=== PATIENT | male | born 1975 | race Caucasian/White ===

== ENCOUNTER 2024-05-06 21:04 | Observation (INO) | payer MEDICARE ==
--- NOTE | 2024-05-06 21:17 | ERPHSYRPT ---
- History of Present Illness Time Seen by Provider: 05/06/24 21:10 Source: patient, EMS Physician History: 49yo m presents via EMS for sob. Pt reports he has been having difficulty catching his breath today, reports he was intubated following a pneumonia and respiratory failure, was extubated 2 wks ago. Pt reports some dry cough today, denies any fevers, chills or body aches. Pt denies any cp, n/v/d. Pt is not currently anticoagulated. Timing/Duration: today Activities at Onset: none Severity of Dyspnea-Max: mild Severity of Dyspnea-Current: mild Possible Cause: occasional episodes Modifying Factors: Improves With: nothing Associated Symptoms: constant, cough, No chest pain/discomfort, No edema, No fever, No wheezing, No ankle swelling, No chills, No hemoptysis, No painful breathing, No productive cough Allergies/Adverse Reactions: No Known Drug Allergies Allergy (Unverified 05/06/24 21:28) Home Medications: Aspirin EC 81 mg [Ecotrin 81 mg] 81 mg PO DAILY 05/06/24 [History] Carvedilol 12.5 mg [Coreg 12.5 mg] 12.5 mg PO BID 05/06/24 [History] Cholecalciferol (Vitamin D3) [Vitamin D3] 25 mcg PO DAILY 05/06/24 [History] Dapagliflozin Propanediol [Farxiga] 10 mg PO DAILY 05/06/24 [History] Dextromethorphan HBr 45 mg PO DAILY 05/06/24 [History] Fenofibrate Nanocrystallized [Tricor] 48 mg PO DAILY 05/06/24 [History] Gabapentin 600 mg PO DAILY 05/06/24 [History] Hydrocodone/Acetaminophen [Hydrocodone-Acetamin 5-325 mg] 1 tab PO Q6HPRN PRN MDD 4 05/06/24 [History] Insulin Aspart [NovoLOG Insulin] 35 unit SQ TIDAC 05/06/24 [History] Insulin Glargine,Hum.rec.anlog [Basaglar Kwikpen U-100] 60 unit SQ DAILY 05/06/24 [History] Omeprazole 20 mg PO DAILY 05/06/24 [History] Ropinirole HCl 0.25 mg PO DAILY 05/06/24 [History] Sitagliptin Phosphate 50 MG [Januvia 50 MG] 100 mg PO DAILY 05/06/24 [History] - Review of Systems Constitutional: No Symptoms Respiratory: Cough, Dyspnea, No Stridor, No Wheezing Cardiac: No Chest Pain, No Edema, No Palpitations Abdominal/Gastrointestinal: No Symptoms - Nursing Vital Signs Nursing Vital Signs: Initial Vital Signs Pulse Rate 94 H 05/06/24 21:03 Respiratory Rate 15 05/06/24 21:03 Blood Pressure 156/103 05/06/24 21:03 O2 Sat by Pulse Oximetry 95 05/06/24 21:03 Pain Scale Pain Intensity 1 - Physical Exam General Appearance: no apparent distress, alert Respiratory Exam: normal breath sounds, lungs clear, diminished breath sounds (diffusely), No chest tenderness, No respiratory distress Cardiovascular/Chest Exam: normal heart sounds, regular rate/rhythm, normal peripheral pulses, No edema Neurologic Exam: alert, oriented x 3, cooperative SpO2 Interpretation: normal SpO2: 95 O2 Delivery: Nasal Cannula (2L) - Course EKG Interpreted by Me: RATE (98), Sinus Rhythm, Non-specific ST Changes, Other (qtcb [id number], not suggestive of acute ischemia) Ordered Tests: Active Orders 24 hr Category Date Time Status EKG-ER Only STAT Care 05/06/24 21:14 Active CHEST WITH CONTRAST [CT] Stat Exams 05/06/24 22:08 Completed CBC W DIFF Stat Lab 05/06/24 21:15 Completed CMP Stat Lab 05/06/24 21:15 Completed D-DIMER QUANTITATIVE Stat Lab 05/06/24 21:15 Completed Lactic Acid Stat Lab 05/06/24 21:25 Completed PROCALCITONIN Stat Lab 05/06/24 21:15 Completed TROPONIN Q4H Lab 05/07/24 00:45 Ordered TROPONIN Q4H Lab 05/07/24 04:45 Ordered TROPONIN Q4H Lab 05/07/24 08:45 Ordered TROPONIN Q4H Lab 05/07/24 12:45 Ordered TROPONIN Q4H Lab 05/07/24 16:45 Ordered TROPONIN Q4H Lab 05/07/24 20:45 Ordered UA W/RFX UR CULTURE Stat Lab 05/06/24 22:18 Completed Respiratory Therapy Assessment DAILY RT 05/06/24 21:36 Active Medication Summary Discontinued Medications Generic Name Dose Route Start Last Admin Trade Name Freq PRN Reason Stop Dose Admin Albuterol/Ipratropium 3 ml 05/06/24 21:14 05/06/24 21:36 Ipratropium/Albuterol Sulfate 3 Ml Ampul.Neb IH 05/06/24 21:15 3 ml STAT ONE Administration Albuterol/Ipratropium Confirm 05/06/24 21:20 Ipratropium/Albuterol Sulfate 3 Ml Ampul.Neb Administered 05/06/24 21:21 Dose 3 ml IH .STK-MED ONE Lab/Rad Data: Laboratory Result Diagrams 05/06/24 21:15 05/06/24 21:15 Laboratory Results 05/06/24 05/06/24 05/06/24 Range/Units 22:18 21:25 21:15 WBC (4.23-9.07) x10^3/uL RBC (4.63-6.08) x10^6/uL Hgb (13.7-17.5) g/dL Hct (40.1-51.0) % MCV (79.0-92.2) fL MCH (25.7-32.2) pg MCHC (32.3-36.5) g/dL RDW (11.6-14.4) % Plt Count (163-337) x10^3/uL MPV (9.4-12.4) fL Gran % (34.0-67.9) % Immature Gran % (Auto) (0.001-0.429) % Nucleat RBC Rel Count (0.00-0.2) % Eos # (Auto) (0.04-0.54) x10^3/uL Immature Gran # (Auto) (0.001-0.031) x10^3u/L Absolute Lymphs (auto) (1.32-3.57) x10^3/uL Absolute Monos (auto) (0.30-0.82) x10^3/uL Absolute Nucleated RBC (0.00-0.012) x10^3u/L Lymphocytes % (21.8-53.1) % Monocytes % (5.3-12.2) % Eosinophils % (0.8-7.0) % Basophils % (0.2-1.2) % Absolute Granulocytes (1.78-5.38) x10^3/uL Basophils # (0.01-0.08) x10^3/uL D-Dimer 0.59 H (0.0-0.50) mg/L Sodium (135-145) mmol/L Potassium (3.5-5.1) mmol/L Chloride (98-107) mmol/L Carbon Dioxide (22-30) mmol/L Anion Gap (5-15) MEQ/L BUN (9-20) mg/dL Creatinine (0.66-1.25) mg/dL Estimated GFR ML/MIN Glucose (74-106) mg/dL Lactic Acid 1.2 (0.4-2.0) Calcium (8.4-10.2) mg/dL Total Bilirubin (0.2-1.3) mg/dL AST (17-59) U/L ALT (0-50) U/L Alkaline Phosphatase (38-126) U/L Serum Total Protein (6.3-8.2) g/dL Albumin (3.5-5.0) g/dL Procalcitonin (0.030-0.080) ng/mL Urine Color Yellow (Yellow) Urine Appearance Clear (Clear) Urine pH 5.5 (4.6-8.0) Ur Specific [place] >=1.030 A (1.005-1.030) Urine Protein Negative (Negative) Urine Glucose (UA) >=1000 A (Negative) mg/dL Urine Ketones Negative (Negative) Urine Blood Negative (Negative) Urine Nitrite Negative (Negative) Urine Bilirubin Negative (Negative) Urine Urobilinogen 1.0 A (0.2) mg/dL Ur Leukocyte Esterase Negative (Negative) U Hyaline Cast (Auto) NONE SEEN (0-2) /LPF Urine Microscopic RBC 0-2 (0-5) /HPF Urine Microscopic WBC 0-2 (0-5) /HPF Ur Epithelial Cells None Seen (None Seen) /HPF Urine Bacteria None Seen (None Seen) /HPF Urine Culture Reflexed NO (NO) Influenza Type A Ag (NEGATIVE) Influenza Type B Ag (NEGATIVE) RSV (PCR) (NEGATIVE) SARS-CoV-2 (PCR) (NEGATIVE) 05/06/24 05/06/24 05/06/24 Range/Units 21:15 21:15 21:15 WBC (4.23-9.07) x10^3/uL RBC (4.63-6.08) x10^6/uL Hgb (13.7-17.5) g/dL Hct (40.1-51.0) % MCV (79.0-92.2) fL MCH (25.7-32.2) pg MCHC (32.3-36.5) g/dL RDW (11.6-14.4) % Plt Count (163-337) x10^3/uL MPV (9.4-12.4) fL Gran % (34.0-67.9) % Immature Gran % (Auto) (0.001-0.429) % Nucleat RBC Rel Count (0.00-0.2) % Eos # (Auto) (0.04-0.54) x10^3/uL Immature Gran # (Auto) (0.001-0.031) x10^3u/L Absolute Lymphs (auto) (1.32-3.57) x10^3/uL Absolute Monos (auto) (0.30-0.82) x10^3/uL Absolute Nucleated RBC (0.00-0.012) x10^3u/L Lymphocytes % (21.8-53.1) % Monocytes % (5.3-12.2) % Eosinophils % (0.8-7.0) % Basophils % (0.2-1.2) % Absolute Granulocytes (1.78-5.38) x10^3/uL Basophils # (0.01-0.08) x10^3/uL D-Dimer (0.0-0.50) mg/L Sodium 141 (135-145) mmol/L Potassium 4.1 (3.5-5.1) mmol/L Chloride 105 (98-107) mmol/L Carbon Dioxide 29 (22-30) mmol/L Anion Gap 11.3 (5-15) MEQ/L BUN 17 (9-20) mg/dL Creatinine 0.90 (0.66-1.25) mg/dL Estimated GFR 104.1 ML/MIN Glucose 116 H (74-106) mg/dL Lactic Acid (0.4-2.0) Calcium 9.5 (8.4-10.2) mg/dL Total Bilirubin 0.30 (0.2-1.3) mg/dL AST 22 (17-59) U/L ALT 22 (0-50) U/L Alkaline Phosphatase 61 (38-126) U/L Serum Total Protein 7.6 (6.3-8.2) g/dL Albumin 4.0 (3.5-5.0) g/dL Procalcitonin 0.062 (0.030-0.080) ng/mL Urine Color (Yellow) Urine Appearance (Clear) Urine pH (4.6-8.0) Ur Specific [place] (1.005-1.030) Urine Protein (Negative) Urine Glucose (UA) (Negative) mg/dL Urine Ketones (Negative) Urine Blood (Negative) Urine Nitrite (Negative) Urine Bilirubin (Negative) Urine Urobilinogen (0.2) mg/dL Ur Leukocyte Esterase (Negative) U Hyaline Cast (Auto) (0-2) /LPF Urine Microscopic RBC (0-5) /HPF Urine Microscopic WBC (0-5) /HPF Ur Epithelial Cells (None Seen) /HPF Urine Bacteria (None Seen) /HPF Urine Culture Reflexed (NO) Influenza Type A Ag NEGATIVE (NEGATIVE) Influenza Type B Ag NEGATIVE (NEGATIVE) RSV (PCR) NEGATIVE (NEGATIVE) SARS-CoV-2 (PCR) NEGATIVE (NEGATIVE) 05/06/24 Range/Units 21:15 WBC 12.3 H (4.23-9.07) x10^3/uL RBC 5.50 (4.63-6.08) x10^6/uL Hgb 14.3 (13.7-17.5) g/dL Hct 47.2 (40.1-51.0) % MCV 85.8 (79.0-92.2) fL MCH 26.0 (25.7-32.2) pg MCHC 30.3 L (32.3-36.5) g/dL RDW 14.6 H (11.6-14.4) % Plt Count 293 (163-337) x10^3/uL MPV 9.8 (9.4-12.4) fL Gran % 74.4 H (34.0-67.9) % Immature Gran % (Auto) 0.5 H (0.001-0.429) % Nucleat RBC Rel Count 0.0 (0.00-0.2) % Eos # (Auto) 0.32 (0.04-0.54) x10^3/uL Immature Gran # (Auto) 0.06 H (0.001-0.031) x10^3u/L Absolute Lymphs (auto) 1.86 (1.32-3.57) x10^3/uL Absolute Monos (auto) 0.86 H (0.30-0.82) x10^3/uL Absolute Nucleated RBC 0.00 (0.00-0.012) x10^3u/L Lymphocytes % 15.1 L (21.8-53.1) % Monocytes % 7.0 (5.3-12.2) % Eosinophils % 2.6 (0.8-7.0) % Basophils % 0.4 (0.2-1.2) % Absolute Granulocytes 9.19 H (1.78-5.38) x10^3/uL Basophils # 0.05 (0.01-0.08) x10^3/uL D-Dimer (0.0-0.50) mg/L Sodium (135-145) mmol/L Potassium (3.5-5.1) mmol/L Chloride (98-107) mmol/L Carbon Dioxide (22-30) mmol/L Anion Gap (5-15) MEQ/L BUN (9-20) mg/dL Creatinine (0.66-1.25) mg/dL Estimated GFR ML/MIN Glucose (74-106) mg/dL Lactic Acid (0.4-2.0) Calcium (8.4-10.2) mg/dL Total Bilirubin (0.2-1.3) mg/dL AST (17-59) U/L ALT (0-50) U/L Alkaline Phosphatase (38-126) U/L Serum Total Protein (6.3-8.2) g/dL Albumin (3.5-5.0) g/dL Procalcitonin (0.030-0.080) ng/mL Urine Color (Yellow) Urine Appearance (Clear) Urine pH (4.6-8.0) Ur Specific [place] (1.005-1.030) Urine Protein (Negative) Urine Glucose (UA) (Negative) mg/dL Urine Ketones (Negative) Urine Blood (Negative) Urine Nitrite (Negative) Urine Bilirubin (Negative) Urine Urobilinogen (0.2) mg/dL Ur Leukocyte Esterase (Negative) U Hyaline Cast (Auto) (0-2) /LPF Urine Microscopic RBC (0-5) /HPF Urine Microscopic WBC (0-5) /HPF Ur Epithelial Cells (None Seen) /HPF Urine Bacteria (None Seen) /HPF Urine Culture Reflexed (NO) Influenza Type A Ag (NEGATIVE) Influenza Type B Ag (NEGATIVE) RSV (PCR) (NEGATIVE) SARS-CoV-2 (PCR) (NEGATIVE) - Progress Progress: improved Air Movement: fair Progress Note: 05/07/24 00:36 d dimer elevated at 0.59 - CTA chest ordered - negative for large PE, radiologist read reports they cannot r/o small subsegmental PE wbc 12k, procal wnl CTA chest not suggestive of acute pna, viral swabs negative vitals stable throughout stay, pt has saturated around 95% on 2L nc in ED plan to admit for obs - i discussed pt case w/ hospitalist Dr Palm who is willing to accept Blood Culture(s) Obtained: No Antibiotics given: No Counseled pt/family regarding: lab results, diagnosis, need for follow-up, rad results Medical Desision Making - Diagnostic Testing Diagnostic test were ordered, analyzed, and reviewed by me: Yes Radiological Interpretation: Reviewed by me, Teleradiologist Report - Risk of complications The pt has a high risk of morbidity or mortality based on: Decision regarding hospitilization or escalation of hosp level of care - Departure Departure Disposition: Observation Clinical Impression: Acute hypoxic respiratory failure, Elevated d-dimer Condition: Stable Critical Care Time: No Referrals: DOCTOR,NO FAMILY [Primary Care Provider] - Follow up/PCP as directed
[2024-05-06] MEDS ORDERED: DUONEB 0.5-3 MG/3 ml Neb IH ONE (21:20)
[2024-05-06 21:33] LABS: Absolute Neutrophil Ct (ANC) 9.19 x10^3/uL (1.78-5.38); BASOPHIL % 0.4 % (0.2-1.2); Basophil (Absolute #) 0.05 x10^3/uL (0.01-0.08); Eosinophil % 2.6 % (0.8-7.0); Eosinophil (Absolute #) 0.32 x10^3/uL (0.04-0.54); Hematocrit 47.2 % (40.1-51.0); Hemoglobin 14.3 g/dL (13.7-17.5); IMMATURE GRAN # 0.06 x10^3u/L (0.001-0.031); IMMATURE GRAN % 0.5 % (0.001-0.429); Lymphocyte (Absolute #) 1.86 x10^3/uL (1.32-3.57); Lymphocytes % 15.1 % (21.8-53.1); Mean Cell Volume 85.8 fL (79.0-92.2); Mean Corpuscular Hgb Concent. 30.3 g/dL (32.3-36.5); Mean Platelet Volume 9.8 fL (9.4-12.4); Monocyte (Absolute #) 0.86 x10^3/uL (0.30-0.82); Neutrophil % 74.4 % (34.0-67.9); Platelet Count 293 x10^3/uL (163-337); Red Cell Distribution Width 14.6 % (11.6-14.4); White Blood Count 12.3 x10^3/uL (4.23-9.07)
[2024-05-06] MEDS: DUONEB 0.5-3 MG/3 ml Neb IH ONE (21:36)
[2024-05-06 21:48] LABS: ANION GAP 11.3 MEQ/L (5-15); BILIRUBIN,TOTAL 0.3 mg/dL (0.2-1.3); Calcium 9.5 mg/dL (8.4-10.2); Creatinine 1 0.9 mg/dL (0.66-1.25); EST GLOMERULAR FILTRATION RATE 104.1 ML/MIN; Potassium 4.1 mmol/L (3.5-5.1); Total Protein 7.6 g/dL (6.3-8.2)
[2024-05-06 22:10] LABS: INFLUENZA A NEGATIVE (NEGATIVE); INFLUENZA B NEGATIVE (NEGATIVE); RESPIRATORY SYNCTIAL VIRUS NEGATIVE (NEGATIVE); SARS-CoV-2 Xpert Express NEGATIVE (NEGATIVE)
[2024-05-06 22:26] LABS: Appearance Clear (Clear); Bacteria None Seen /HPF (None Seen); Bilirubin Negative (Negative); Blood Negative (Negative); Epithelial Cells None Seen /HPF (None Seen); Glucose, Urine >=1000 mg/dL (Negative); Hyaline Casts NONE SEEN /LPF (0-2); Ketones Negative (Negative); Leukocyte Esterase Negative (Negative); Nitrite Negative (Negative); Ph 5.5 (4.6-8.0); Protein,Urine Dip Negative (Negative); RBC 0-2 /HPF (0-5); Specific Gravity >=1.030 (1.005-1.030); WBC 0-2 /HPF (0-5)
--- NOTE | 2024-05-07 00:05 | XRAY ---
CLINICAL HISTORY: elevated dimer, sob COMPARISON: None. TECHNIQUE: Contiguous 3.[address] angiographic images of the chest were acquired with the administration of intravenous contrast. Coronal and sagittal reconstructions were obtained. One of these 3D techniques was utilized: Maximum Intensity Pixel (MIP), 3D Reconstructed Images, Volume Rendered Images, Surface Shaded Rendering. One of the following dose reduction techniques were utilized for this exam: Automated exposure control, adjustment of the mA and/or kV according to patient size, and use of iterative reconstruction. FINDINGS: Pulmonary Arteries: No evidence of pulmonary embolism in the pulmonary trunk, the right and left pulmonary arteries. The possibility of pulmonary embolism in the segmental and subsegmental pulmonary arteries cannot be entirely excluded due to suboptimal contrast opacification, No stenosis or filling defects. Aorta: The thoracic aorta is normal in caliber. No evidence of aneurysm, dissection, or significant atherosclerotic changes. Aortic arch and descending thoracic aorta are unremarkable. Superior Vena Cava (SVC) and Inferior Vena Cava (IVC): Normal opacification and caliber. No evidence of thrombus or obstruction. Coronary Arteries: Coronary arteries are well-opacified. No significant stenosis or atherosclerotic changes. Mediastinum: No mediastinal mass or lymphadenopathy. Normal appearance of the thymus. Few calcified hilar lymph nodes. Heart: Normal size and morphology of the heart. No pericardial effusion. Lungs: Lungs are clear with no evidence of consolidation, nodules, or masses. Calcified granuloma is seen in the right lower lobe. No pleural effusion or thickening. Bones: No fractures or lytic/sclerotic lesions of the visualized bony structures. Normal alignment and bone density. Soft Tissues: Normal appearance of the visualized soft tissues. No abnormal masses or fluid collections. IMPRESSION: 1. No evidence of pulmonary embolism in the pulmonary trunk, the right and left pulmonary arteries. 2. The possibility of pulmonary embolism in the segmental and subsegmental pulmonary arteries cannot be entirely excluded due to suboptimal contrast opacification. Should the clinical concerns or indications persist, a follow-up examination with optimal phase acquisition may be considered. 3. No acute pulmonary findings. Electronically Signed by: Kay Banks MD. (05/07/2024 00:01:44 EST)
--- NOTE | 2024-05-07 01:37 | PCM.HP ---
History of Present Illness - Chief Complaint Chief Complaint: acute hypoxic respiratory failure Date: 05/06/24 History of Present Illness: 49-year-old male with senior care resident, with past medical history significant for COPD, hypertension, hyperlipidemia, type 2 diabetes mellitus, GERD, restless leg,who just got discharged from [facility] ago, he had complicated pneumonia had a long course remained intubated, he sent to senior care 2 weeks ago where he stayed fine till this evening when noted to be in respiratory distress. Patient although denied having any chest pain shortness of breath no new cough congestion reported but his saturation was down to 80%. Upon arrival to ER he was placed on 2 L and says sats went up to 90%. In the ER the initial blood pressure was 156/103 his pulse was 94 respiration 15 he was afebrile with temp of 98.3.Lab workup concern white cell count 12.3 hemoglobin 14.3 platelets 193 sodium 141 potassium 4.1 chloride 104 bicarb 29 BUN 17 creatinine 0.90. D-dimer reported high liver enzymes completely unremark able procalcitonin 0.062 urine was negative. He was tested negative for influenza COVID and respiratory syncytial virus. Checks x-ray remained unremarkable patient admitted for observation for acute resp failure - Review of Systems All Other Systems: Reviewed and Negative Medications & Allergies Home Medications: Home Medication List Aspirin EC 81 mg [Ecotrin 81 mg] 81 mg PO DAILY 05/06/24 [History Confirmed 05/07/24] Carvedilol 12.5 mg [Coreg 12.5 mg] 12.5 mg PO BID 05/06/24 [History Confirmed 05/07/24] Cholecalciferol (Vitamin D3) [Vitamin D3] 25 mcg PO DAILY 05/06/24 [History Confirmed 05/07/24] Dapagliflozin Propanediol [Farxiga] 10 mg PO DAILY 05/06/24 [History Confirmed 05/07/24] Dextromethorphan HBr 45 mg PO DAILY 05/06/24 [History Confirmed 05/07/24] Fenofibrate Nanocrystallized [Tricor] 48 mg PO DAILY 05/06/24 [History Confirmed 05/07/24] Gabapentin 600 mg PO DAILY 05/06/24 [History Confirmed 05/07/24] Hydrocodone/Acetaminophen [Hydrocodone-Acetamin 5-325 mg] 1 tab PO Q6HPRN PRN MDD 4 05/06/24 [History Confirmed 05/07/24] Insulin Aspart [NovoLOG Insulin] 35 unit SQ TIDAC 05/06/24 [History Confirmed 05/07/24] Insulin Glargine,Hum.rec.anlog [Basaglar Kwikpen U-100] 60 unit SQ DAILY 05/06/24 [History Confirmed 05/07/24] Omeprazole 20 mg PO DAILY 05/06/24 [History Confirmed 05/07/24] Ropinirole HCl 0.25 mg PO DAILY 05/06/24 [History Confirmed 05/07/24] Sitagliptin Phosphate 50 MG [Januvia 50 MG] 100 mg PO DAILY 05/06/24 [History Confirmed 05/07/24] Allergies/Adverse Reactions: Allergies Allergy/AdvReac Type Severity Reaction Status Date / Time No Known Drug Allergies Allergy Unverified 05/06/24 21:28 - Past Medical History Past Medical History: Yes Cardiac History: High Cholesterol, Hypertension Respiratory History: COPD, Sleep Apnea Endocrine Medical History: Diabetes Type II GI Medical History: GERD Pyscho-Social History: Anxiety Comment: hx of chronic resp failure, pulmonary edema, rls - Past Surgical History Past Surgical History: No Significant Family History: no pertinent family hx - Social History Smoking Status: Former smoker Exposure to second hand smoke: No Alcohol: None Drug Use: none - Social Determinants of Health Will the patient participate in the screening: Declined to provide Comment: from envive - Physical Exam Vital Signs: Vital Signs - 24 hr Temp Pulse Resp BP BP Pulse Ox 05/07/24 01:01 79 18 137/74 95 05/07/24 00:39 95 05/07/24 00:30 20 143/115 94 L 05/07/24 00:00 81 20 116/76 99 05/06/24 23:30 18 138/69 87 L 05/06/24 23:04 74 20 123/70 96 05/06/24 22:30 131/76 05/06/24 22:00 95 H 132/107 73 L 05/06/24 21:36 99 H 24 95 05/06/24 21:30 99 H 17 132/103 96 05/06/24 21:10 98.3 F 101 H 20 156/103 97 05/06/24 21:03 94 H 15 156/103 95 Additional Findings: 05/07/24 01:35 HEENT Young aged, average built in some resp distress on 2 liters oxygen. NECK Supple,no thyromegaly, CVS S1+S2 + 0, no murmers RESP Bilateral equal air entry without Crepts/Wheezes heard GIT Soft non tender,non distended Skin, No rah, no Bruises LEGS No Edema PSYCH Normal,mood, judgement and insight NEURO AOX3, no focal deficit Results - Labs Lab/Micro Results: Lab Results-Last 24 Hours 05/06/24 05/06/24 05/06/24 Range/Units 21:15 21:15 21:15 WBC 12.3 H (4.23-9.07) x10^3/uL RBC 5.50 (4.63-6.08) x10^6/uL Hgb 14.3 (13.7-17.5) g/dL Hct 47.2 (40.1-51.0) % MCV 85.8 (79.0-92.2) fL MCH 26.0 (25.7-32.2) pg MCHC 30.3 L (32.3-36.5) g/dL RDW 14.6 H (11.6-14.4) % Plt Count 293 (163-337) x10^3/uL MPV 9.8 (9.4-12.4) fL Gran % 74.4 H (34.0-67.9) % Immature Gran % (Auto) 0.5 H (0.001-0.429) % Nucleat RBC Rel Count 0.0 (0.00-0.2) % Eos # (Auto) 0.32 (0.04-0.54) x10^3/uL Immature Gran # (Auto) 0.06 H (0.001-0.031) x10^3u/L Absolute Lymphs (auto) 1.86 (1.32-3.57) x10^3/uL Absolute Monos (auto) 0.86 H (0.30-0.82) x10^3/uL Absolute Nucleated RBC 0.00 (0.00-0.012) x10^3u/L Lymphocytes % 15.1 L (21.8-53.1) % Monocytes % 7.0 (5.3-12.2) % Eosinophils % 2.6 (0.8-7.0) % Basophils % 0.4 (0.2-1.2) % Absolute Granulocytes 9.19 H (1.78-5.38) x10^3/uL Basophils # 0.05 (0.01-0.08) x10^3/uL D-Dimer (0.0-0.50) mg/L Sodium 141 (135-145) mmol/L Potassium 4.1 (3.5-5.1) mmol/L Chloride 105 (98-107) mmol/L Carbon Dioxide 29 (22-30) mmol/L Anion Gap 11.3 (5-15) MEQ/L BUN 17 (9-20) mg/dL Creatinine 0.90 (0.66-1.25) mg/dL Estimated GFR 104.1 ML/MIN Glucose 116 H (74-106) mg/dL Lactic Acid (0.4-2.0) Calcium 9.5 (8.4-10.2) mg/dL Total Bilirubin 0.30 (0.2-1.3) mg/dL AST 22 (17-59) U/L ALT 22 (0-50) U/L Alkaline Phosphatase 61 (38-126) U/L Troponin I (0.000-0.033) ng/mL Serum Total Protein 7.6 (6.3-8.2) g/dL Albumin 4.0 (3.5-5.0) g/dL Procalcitonin 0.062 (0.030-0.080) ng/mL Urine Color (Yellow) Urine Appearance (Clear) Urine pH (4.6-8.0) Ur Specific [place] (1.005-1.030) Urine Protein (Negative) Urine Glucose (UA) (Negative) mg/dL Urine Ketones (Negative) Urine Blood (Negative) Urine Nitrite (Negative) Urine Bilirubin (Negative) Urine Urobilinogen (0.2) mg/dL Ur Leukocyte Esterase (Negative) U Hyaline Cast (Auto) (0-2) /LPF Urine Microscopic RBC (0-5) /HPF Urine Microscopic WBC (0-5) /HPF Ur Epithelial Cells (None Seen) /HPF Urine Bacteria (None Seen) /HPF Urine Culture Reflexed (NO) Influenza Type A Ag (NEGATIVE) Influenza Type B Ag (NEGATIVE) RSV (PCR) (NEGATIVE) SARS-CoV-2 (PCR) (NEGATIVE) 05/06/24 05/06/24 05/06/24 Range/Units 21:15 21:15 21:25 WBC (4.23-9.07) x10^3/uL RBC (4.63-6.08) x10^6/uL Hgb (13.7-17.5) g/dL Hct (40.1-51.0) % MCV (79.0-92.2) fL MCH (25.7-32.2) pg MCHC (32.3-36.5) g/dL RDW (11.6-14.4) % Plt Count (163-337) x10^3/uL MPV (9.4-12.4) fL Gran % (34.0-67.9) % Immature Gran % (Auto) (0.001-0.429) % Nucleat RBC Rel Count (0.00-0.2) % Eos # (Auto) (0.04-0.54) x10^3/uL Immature Gran # (Auto) (0.001-0.031) x10^3u/L Absolute Lymphs (auto) (1.32-3.57) x10^3/uL Absolute Monos (auto) (0.30-0.82) x10^3/uL Absolute Nucleated RBC (0.00-0.012) x10^3u/L Lymphocytes % (21.8-53.1) % Monocytes % (5.3-12.2) % Eosinophils % (0.8-7.0) % Basophils % (0.2-1.2) % Absolute Granulocytes (1.78-5.38) x10^3/uL Basophils # (0.01-0.08) x10^3/uL D-Dimer 0.59 H (0.0-0.50) mg/L Sodium (135-145) mmol/L Potassium (3.5-5.1) mmol/L Chloride (98-107) mmol/L Carbon Dioxide (22-30) mmol/L Anion Gap (5-15) MEQ/L BUN (9-20) mg/dL Creatinine (0.66-1.25) mg/dL Estimated GFR ML/MIN Glucose (74-106) mg/dL Lactic Acid 1.2 (0.4-2.0) Calcium (8.4-10.2) mg/dL Total Bilirubin (0.2-1.3) mg/dL AST (17-59) U/L ALT (0-50) U/L Alkaline Phosphatase (38-126) U/L Troponin I (0.000-0.033) ng/mL Serum Total Protein (6.3-8.2) g/dL Albumin (3.5-5.0) g/dL Procalcitonin (0.030-0.080) ng/mL Urine Color (Yellow) Urine Appearance (Clear) Urine pH (4.6-8.0) Ur Specific [place] (1.005-1.030) Urine Protein (Negative) Urine Glucose (UA) (Negative) mg/dL Urine Ketones (Negative) Urine Blood (Negative) Urine Nitrite (Negative) Urine Bilirubin (Negative) Urine Urobilinogen (0.2) mg/dL Ur Leukocyte Esterase (Negative) U Hyaline Cast (Auto) (0-2) /LPF Urine Microscopic RBC (0-5) /HPF Urine Microscopic WBC (0-5) /HPF Ur Epithelial Cells (None Seen) /HPF Urine Bacteria (None Seen) /HPF Urine Culture Reflexed (NO) Influenza Type A Ag NEGATIVE (NEGATIVE) Influenza Type B Ag NEGATIVE (NEGATIVE) RSV (PCR) NEGATIVE (NEGATIVE) SARS-CoV-2 (PCR) NEGATIVE (NEGATIVE) 05/06/24 05/07/24 Range/Units 22:18 00:54 WBC (4.23-9.07) x10^3/uL RBC (4.63-6.08) x10^6/uL Hgb (13.7-17.5) g/dL Hct (40.1-51.0) % MCV (79.0-92.2) fL MCH (25.7-32.2) pg MCHC (32.3-36.5) g/dL RDW (11.6-14.4) % Plt Count (163-337) x10^3/uL MPV (9.4-12.4) fL Gran % (34.0-67.9) % Immature Gran % (Auto) (0.001-0.429) % Nucleat RBC Rel Count (0.00-0.2) % Eos # (Auto) (0.04-0.54) x10^3/uL Immature Gran # (Auto) (0.001-0.031) x10^3u/L Absolute Lymphs (auto) (1.32-3.57) x10^3/uL Absolute Monos (auto) (0.30-0.82) x10^3/uL Absolute Nucleated RBC (0.00-0.012) x10^3u/L Lymphocytes % (21.8-53.1) % Monocytes % (5.3-12.2) % Eosinophils % (0.8-7.0) % Basophils % (0.2-1.2) % Absolute Granulocytes (1.78-5.38) x10^3/uL Basophils # (0.01-0.08) x10^3/uL D-Dimer (0.0-0.50) mg/L Sodium (135-145) mmol/L Potassium (3.5-5.1) mmol/L Chloride (98-107) mmol/L Carbon Dioxide (22-30) mmol/L Anion Gap (5-15) MEQ/L BUN (9-20) mg/dL Creatinine (0.66-1.25) mg/dL Estimated GFR ML/MIN Glucose (74-106) mg/dL Lactic Acid (0.4-2.0) Calcium (8.4-10.2) mg/dL Total Bilirubin (0.2-1.3) mg/dL AST (17-59) U/L ALT (0-50) U/L Alkaline Phosphatase (38-126) U/L Troponin I < 0.012 (0.000-0.033) ng/mL Serum Total Protein (6.3-8.2) g/dL Albumin (3.5-5.0) g/dL Procalcitonin (0.030-0.080) ng/mL Urine Color Yellow (Yellow) Urine Appearance Clear (Clear) Urine pH 5.5 (4.6-8.0) Ur Specific [place] >=1.030 A (1.005-1.030) Urine Protein Negative (Negative) Urine Glucose (UA) >=1000 A (Negative) mg/dL Urine Ketones Negative (Negative) Urine Blood Negative (Negative) Urine Nitrite Negative (Negative) Urine Bilirubin Negative (Negative) Urine Urobilinogen 1.0 A (0.2) mg/dL Ur Leukocyte Esterase Negative (Negative) U Hyaline Cast (Auto) NONE SEEN (0-2) /LPF Urine Microscopic RBC 0-2 (0-5) /HPF Urine Microscopic WBC 0-2 (0-5) /HPF Ur Epithelial Cells None Seen (None Seen) /HPF Urine Bacteria None Seen (None Seen) /HPF Urine Culture Reflexed NO (NO) Influenza Type A Ag (NEGATIVE) Influenza Type B Ag (NEGATIVE) RSV (PCR) (NEGATIVE) SARS-CoV-2 (PCR) (NEGATIVE) - Radiology Impressions Radiology Exams & Impressions: Radiology Procedures Category Date Time Status CHEST WITH CONTRAST [CT] Stat Exams 05/06/24 22:08 Completed - Other Procedures and Tests Respiratory Therapy 05/06/24 21:36 Respiratory Therapy Assessment DAILY Assessment/Plan (1) Acute hypoxic respiratory failure Current Visit: Yes Status: Acute Code(s): J96.01 - ACUTE RESPIRATORY FAILURE WITH HYPOXIA (2) Elevated d-dimer Current Visit: Yes Status: Acute Code(s): R79.89 - OTHER SPECIFIED ABNORMAL FINDINGS OF BLOOD CHEMISTRY (3) Hypertension Current Visit: Yes Status: Acute Code(s): I10 - ESSENTIAL (PRIMARY) HYPERTENSION (4) Diabetes mellitus Current Visit: Yes Status: Acute Code(s): E11.9 - TYPE 2 DIABETES MELLITUS WITHOUT COMPLICATIONS Telemedicine Encounter - Telemedicine Encounter Telemedicine Encounter: The entirety of this encounter was performed via TelemedicineThis visit was performed using real-time audio and video connection between my location and thepatients locationwith the assistance of a surrogateat the patients location. Written or verbal consent was obtained from the patient/guardian to perform this visit using[employer] technology. Any patient questions regarding the telemedicine interaction were answered. Acute Hypercapnoic respiratory failure Etiology Co2 retension due to non compliance with CPAP in [place] Less likely infectious as CT chest -ve, Procalcitonin low. Patient is currently on 2 L oxygen keep sats more than 90% Tested -vef or Covid/Influenza Trop negative, will check BNP Will keep admit on telemetry Continue breathing therapy every 4 hours as per need Will start on BIPAP over night and get repeat ABG in am. NOTE Patient recently got discharged from [facility] after getting treated for p neumonia. He had complicated hospital course, he remained intubated as well Elevated D-dimer CT is not impressive for pulmonary embolism and main trunk but cannot be excluded and segmental branches Might need to get a repeat scan if clinical course remained high probability for PE Diabetes mellitus type 2 Resumed home lantus C.w SSI COPD with out acute flare Pt not on Oxygen in NG not on any inhalers/Nebs Hypertension Blood pressure stable Will resume home blood pressure meds Hyperlipidemia Continue home statins GERD Continue pantoprazole Restless leg syndrome Continue home meds SAL Non compliant with CPAP DVT prophylax SCD/Lovenox CODE STATUS full Discharge plan pending the stability. I have reviewed patient levels and imaging in detail all question and concerns were addressed
[2024-05-07 02:19] LABS: A-aADO2 32; ABG HEMOGLOBIN 14.3; ABG POTASSIUM 4.4 (3.5-5.1); ARTERIAL BLD GAS O2 SATURATION 97.5 % (95-100); ARTERIAL BLOOD GAS BASE EXCESS 2.7 (-2.0-2.0); ARTERIAL BLOOD GAS FIO2 28 %; ARTERIAL BLOOD GAS PO2 89 mmHg (75-100); CARBOXYHEMOGLOBIN 1.1 % THgb (0.0-6.9); HGB O2 SAT 95.7 g/dF (94-100); Methhemoglobin 0.8 % (1.4-1.5); paO2 pAO1 0.74
[2024-05-07 02:20] LABS: ABG SITE LEFT RADIAL; ALLEN TEST OK? YES; ARTERIAL BLOOD GAS PCO2 63 mmHg (35-45)
[2024-05-07] MEDS ORDERED: HUMALOG SQ PRN (02:34)
[2024-05-07] MEDS: NORCO 5/325 MG PO PRN (02:42)
[2024-05-07 04:43] LABS: Hematocrit 45.2 % (40.1-51.0); Hemoglobin 13.7 g/dL (13.7-17.5); Mean Cell Volume 86.6 fL (79.0-92.2); Mean Corpuscular Hemoglobin 26.2 pg (25.7-32.2); Mean Corpuscular Hgb Concent. 30.3 g/dL (32.3-36.5); Mean Platelet Volume 9.6 fL (9.4-12.4); Platelet Count 273 x10^3/uL (163-337); Red Blood Count 5.22 x10^6/uL (4.63-6.08); Red Cell Distribution Width 14.6 % (11.6-14.4); White Blood Count 11.4 x10^3/uL (4.23-9.07)
[2024-05-07 05:03] LABS: ANION GAP 11.4 MEQ/L (5-15); Calcium 8.9 mg/dL (8.4-10.2); Creatinine 1 0.76 mg/dL (0.66-1.25); EST GLOMERULAR FILTRATION RATE 109.5 ML/MIN; PREALBUMIN 16.21 mg/dL (17.6-36.0); Potassium 4.1 mmol/L (3.5-5.1)
[2024-05-07] MEDS: DUONEB 0.5-3 MG/3 ml Neb IH SCH (07:14)
[2024-05-07] MEDS ORDERED: MEDICATION INTERVENTION MC SCH ×2 (07:15)
[2024-05-07 07:28] LABS: A-aADO2 112; ABG POTASSIUM 4.1 (3.5-5.1); ARTERIAL BLD GAS O2 SATURATION 98.2 % (95-100); ARTERIAL BLOOD GAS FIO2 36 %; ARTERIAL BLOOD GAS PCO2 45 mmHg (35-45); ARTERIAL BLOOD GAS PO2 88 mmHg (75-100); ARTERIAL BLOOD GAS pH 7.42 (7.35-7.45); CARBOXYHEMOGLOBIN 1.2 % THgb (0.0-6.9); HCO3- 29.2 (22-28); HGB O2 SAT 96.5 g/dF (94-100); Methhemoglobin 0.5 % (1.4-1.5); paO2 pAO1 0.44
[2024-05-07 07:32] LABS: ABG SITE LEFT RADIAL; ALLEN TEST OK? YES
[2024-05-07] MEDS: Tricor 145 MG PO SCH (09:20)
[2024-05-07] MEDS: Requip 0.5 MG PO SCH (09:20)
[2024-05-07] MEDS: COREG 12.5 MG PO SCH (09:20)
[2024-05-07] MEDS: Protonix 40MG Tablet PO SCH (09:21)
[2024-05-07] MEDS: Januvia 50 MG PO SCH (09:21)
[2024-05-07] MEDS: NEURONTIN PO SCH (09:21)
[2024-05-07] MEDS: ECOTRIN 81 MG PO SCH (09:21)
[2024-05-07] MEDS: VITAMIN D PO SCH (09:21)
[2024-05-07] MEDS: ENOXAPARIN SODIUM SQ SCH (09:22)
[2024-05-07] MEDS: Lantus Insulin SQ SCH (09:34)
[2024-05-07] MEDS ORDERED: NON-FORMULARY ITEM (Omeprazole [Omeprazole] 20 MG Tablet.Dr) PO SCH (10:00)
[2024-05-07] MEDS ORDERED: ROPINIROLE HCL 0.25 MG PO SCH (10:00)
[2024-05-07] MEDS ORDERED: FENOFIBRATE NANOCRYSTALLIZED 48 MG PO SCH (10:00)
[2024-05-07] MEDS ORDERED: NON-FORMULARY ITEM (Insulin Glargine,Hum.Rec.Anlog [Basaglar Kwikpen U-100] 100 UNIT/ML In SQ SCH (10:00)
[2024-05-07] MEDS ORDERED: NON-FORMULARY ITEM (Gabapentin [Gabapentin] 600 MG Tablet) PO SCH (10:00)
[2024-05-07] MEDS ORDERED: DEXTROMETHORPHAN HBR 15 MG PO SCH (10:00)
[2024-05-07] MEDS ORDERED: CHOLECALCIFEROL 25 MCG PO SCH (10:00)
[2024-05-07] MEDS ORDERED: NON-FORMULARY ITEM (Dapagliflozin Propanediol [Farxiga] 10 MG Tablet) PO SCH (10:00)
[2024-05-07] MEDS ORDERED: DUONEB 0.5-3 MG/3 ml Neb IH PRN (12:52)
[2024-05-08 04:12] VITALS: RESP 20
[2024-05-08 06:29] LABS: Hematocrit 41.6 % (40.1-51.0); Hemoglobin 12.7 g/dL (13.7-17.5); Mean Cell Volume 85.2 fL (79.0-92.2); Mean Corpuscular Hgb Concent. 30.5 g/dL (32.3-36.5); Platelet Count 278 x10^3/uL (163-337); Red Blood Count 4.88 x10^6/uL (4.63-6.08); Red Cell Distribution Width 14.7 % (11.6-14.4); White Blood Count 9.4 x10^3/uL (4.23-9.07)
[2024-05-08 06:46] LABS: ALBUMIN 3.5 g/dL (3.5-5.0); ANION GAP 9.9 MEQ/L (5-15); BILIRUBIN,TOTAL 0.4 mg/dL (0.2-1.3); Calcium 8.7 mg/dL (8.4-10.2); Creatinine 1 0.75 mg/dL (0.66-1.25); EST GLOMERULAR FILTRATION RATE 109.9 ML/MIN; Total Protein 6.8 g/dL (6.3-8.2)
[2024-05-08 08:33] VITALS: PULSE 84; O2SAT 94
--- NOTE | 2024-05-08 08:56 | PCM.DS ---
Discharge Summary Date of Admission: 05/07/24 02:06 Date of Discharge: 05/08/24 Admitting Physician: MARIA EUGENIA ARELLANO MD Primary Care Provider: NO FAMILY DOCTOR Allergies Allergies No Known Drug Allergies Allergy (Unverified 05/06/24 21:28) Hospital Summary - Hospital Course Hospital Course: 49-year-old male with retirement resident, with past medical history significant for COPD, hypertension, hyperlipidemia, type 2 diabetes mellitus, GERD, restless leg,who just got discharged from [facility] 2 weeks ago, he had complicated pneumonia had a long course remained intubated, he sent to retirement 2 weeks ago where he stayed fine until the evening of 05/06/24 when noted to be in respiratory distress. Patient although denied having any chest pain shortness of breath no new cough congestion reported but his saturation was down to 80%. Upon arrival to ER he was placed on 2 L and says sats went up to 90%. In the ER the initial blood pressure was 156/103 his pulse was 94 respiration 15 he was afebrile with temp of 98.3.Lab workup concern white cell count 12.3 hemoglobin 14.3 platelets 193 sodium 141 potassium 4.1 chloride 104 bicarb 29 BUN 17 creatinine 0.90. D-dimer reported high liver enzymes completely unremarkable procalcitonin 0.062 urine was negative. He was tested negative for influenza COVID and RSV. Chest x-ray unremarkable and patient admitted for observation for acute resp. failure. He has not had a temp since admission. Case management has arranged for pt to have biapap set up with O2 at ECF. ECF to then eval for home cpap or bipap set up. He is feeling better and denies any further c/o at this time. - Vitals & Intake/Output Vital Signs: Vital Signs Temperature 97.0 F 05/08/24 04:00 Pulse Rate 84 05/08/24 08:32 Respiratory Rate 20 05/08/24 08:32 Blood Pressure 127/60 05/08/24 04:00 O2 Sat by Pulse Oximetry 94 L 05/08/24 08:32 Intake & Output: Intake & Output 05/05/24 05/06/24 05/07/24 05/08/24 12:59 11:59 11:59 11:59 Intake Total 716 1860 Output Total 925 1920 Balance -209 -60 Weight 195.6 kg - Lab Result Diagrams: 05/08/24 06:20 05/08/24 06:20 Lab Results-Last 24 Hrs: Lab Results-Last 24 Hours 05/07/24 05/07/24 05/07/24 Range/Units 09:00 11:36 15:58 WBC (4.23-9.07) x10^3/uL RBC (4.63-6.08) x10^6/uL Hgb (13.7-17.5) g/dL Hct (40.1-51.0) % MCV (79.0-92.2) fL MCH (25.7-32.2) pg MCHC (32.3-36.5) g/dL RDW (11.6-14.4) % Plt Count (163-337) x10^3/uL MPV (9.4-12.4) fL Sodium (135-145) mmol/L Potassium (3.5-5.1) mmol/L Chloride (98-107) mmol/L Carbon Dioxide (22-30) mmol/L Anion Gap (5-15) MEQ/L BUN (9-20) mg/dL Creatinine (0.66-1.25) mg/dL Estimated GFR ML/MIN Glucose (74-106) mg/dL POC Glucometer 149 H 140 H (74 to 106) mg/dL Calcium (8.4-10.2) mg/dL Total Bilirubin (0.2-1.3) mg/dL AST (17-59) U/L ALT (0-50) U/L Alkaline Phosphatase (38-126) U/L Troponin I < 0.012 (0.000-0.033) ng/mL Serum Total Protein (6.3-8.2) g/dL Albumin (3.5-5.0) g/dL 05/07/24 05/08/24 05/08/24 Range/Units 21:07 06:20 06:20 WBC 9.4 H (4.23-9.07) x10^3/uL RBC 4.88 (4.63-6.08) x10^6/uL Hgb 12.7 L (13.7-17.5) g/dL Hct 41.6 (40.1-51.0) % MCV 85.2 (79.0-92.2) fL MCH 26.0 (25.7-32.2) pg MCHC 30.5 L (32.3-36.5) g/dL RDW 14.7 H (11.6-14.4) % Plt Count 278 (163-337) x10^3/uL MPV 10.0 (9.4-12.4) fL Sodium 140 (135-145) mmol/L Potassium 4.0 (3.5-5.1) mmol/L Chloride 103 (98-107) mmol/L Carbon Dioxide 31 H (22-30) mmol/L Anion Gap 9.9 (5-15) MEQ/L BUN 15 (9-20) mg/dL Creatinine 0.75 (0.66-1.25) mg/dL Estimated GFR 109.9 ML/MIN Glucose 133 H (74-106) mg/dL POC Glucometer 135 H (74 to 106) mg/dL Calcium 8.7 (8.4-10.2) mg/dL Total Bilirubin 0.40 (0.2-1.3) mg/dL AST 20 (17-59) U/L ALT 17 (0-50) U/L Alkaline Phosphatase 58 (38-126) U/L Troponin I (0.000-0.033) ng/mL Serum Total Protein 6.8 (6.3-8.2) g/dL Albumin 3.5 (3.5-5.0) g/dL 05/08/24 Range/Units 07:59 WBC (4.23-9.07) x10^3/uL RBC (4.63-6.08) x10^6/uL Hgb (13.7-17.5) g/dL Hct (40.1-51.0) % MCV (79.0-92.2) fL MCH (25.7-32.2) pg MCHC (32.3-36.5) g/dL RDW (11.6-14.4) % Plt Count (163-337) x10^3/uL MPV (9.4-12.4) fL Sodium (135-145) mmol/L Potassium (3.5-5.1) mmol/L Chloride (98-107) mmol/L Carbon Dioxide (22-30) mmol/L Anion Gap (5-15) MEQ/L BUN (9-20) mg/dL Creatinine (0.66-1.25) mg/dL Estimated GFR ML/MIN Glucose (74-106) mg/dL POC Glucometer 126 H (74 to 106) mg/dL Calcium (8.4-10.2) mg/dL Total Bilirubin (0.2-1.3) mg/dL AST (17-59) U/L ALT (0-50) U/L Alkaline Phosphatase (38-126) U/L Troponin I (0.000-0.033) ng/mL Serum Total Protein (6.3-8.2) g/dL Albumin (3.5-5.0) g/dL - Radiology Exams Ordered Rad Exams-Entire Visit: Radiology Procedures Category Date Time Status CHEST WITH CONTRAST [CT] Stat Exams 05/06/24 22:08 Completed - Procedures and Test Procedures and Tests throughout Hospitalization: Therapy Orders & Screens 05/06/24 21:36 Respiratory Therapy Assessment DAILY Comment: 05/07/24 02:50 BiPap/CPAP ROUTINE Comment: Diagnosis: acute hypoxic respiratory failure 05/07/24 02:51 Oxygen Nasal Cannula 2 lpm Comment: Diagnosis: acute hypoxic respiratory failure Respiratory Therapy Assessment DAILY Comment: Diagnosis: acute hypoxic respiratory failure 05/07/24 03:41 OT Screen per Nursing Assess ONCE Comment: Protocol Order Physician Instructions: Greater than 3 points order OT Admission Screening Reason For Exam: Triggered on Admission Diagnosis: acute hypoxic respiratory failure Open Wound/Cellutlitis/Pressure Ulcers: Yes Acute Fx/ORIF/Change in wt bearing status: No Severe MUSCULOSKELETAL pain: No ADL Dysfunction: Yes Acute CVA w/Hemiparesis/Hemiplegia: No Decreased Functional Mobility/Strength: No Sprain/Strain: No Acute Post-op Mobility Dysfunction: No Total Points: 8 PT Screen per Nursing Assess ONCE Comment: Protocol Order Physician Instructions: Greater than 3 points order PT Admission Screenin Reason For Exam: Triggered on Admission Diagnosis: acute hypoxic respiratory failure Open Wound/Cellutlitis/Pressure Ulcers: Yes Acute Fx/ORIF/Change in wt bearing status: No Severe MUSCULOSKELETAL pain: No ADL Dysfunction: Yes Acute CVA w/Hemiparesis/Hemiplegia: No Decreased Functional Mobility/Strength: No Sprain/Strain: No Acute Post-op Mobility Dysfunction: No Total Points: 8 ST Screen per Nursing Assess ONCE Comment: Protocol Order Physician Instructions: Greater than [address] Admission Screening Reason For Exam: Triggered on Admission Diagnosis: acute hypoxic respiratory failure CVA/Dyshpagia/Aphasia: No Cognitive Deficits: No Dehydration/Nutrition Deficit: No Reflux: No Oral-Motor Difficulties: No Pneumonia: No Correction Resident: Yes Total Points: 5 Discharge Exam General Appearance: no apparent distress, alert, obese Neurologic Exam: alert, oriented x 3, cooperative, normal mood/affect, nml c erebellar function, sensation nml, No motor deficits Eye Exam: PERRL, EOMI, eyes nml inspection Ears, Nose, Throat Exam: normal ENT inspection, pharynx normal, moist mucous membranes Neck Exam: normal inspection, non-tender, supple, full range of motion Respiratory Exam: normal breath sounds, lungs clear, No respiratory distress Cardiovascular Exam: regular rate/rhythm, normal heart sounds Gastrointestinal/Abdomen Exam: soft, No tenderness, No mass Male Genitalia Exam: deferred Rectal Exam: deferred Back Exam: normal inspection, normal range of motion, No CVA tenderness, No vertebral tenderness Extremity Exam: normal inspection, normal range of motion Skin Exam: normal color, warm, dry Wound Assessment: Skin/Wound Assessment Wound/Incision Assessment Start: 05/07/24 03:41 Text: Status: Active Freq: Q6H Protocol: Document 05/08/24 02:00 ANDRIY (Rec: 05/08/24 02:01 ANDRIY [id number]) Wound/Incision Assessment Generalized Wound Assessment Shift Assessment Wound Type ROUND SORES Wound Stage Non Pressure Wound Drainage Amount None General Appearance Open to air,Reddened Surrounding Tissue Bright Red,Dark Red Comment MULTIPLE SORES NOTED, IN VARIOUS STAGES OF HEALING Final Diagnosis/Problem List - Final Discharge Diagnosis/Problem (1) Acute hypoxic respiratory failure Current Visit: Yes Status: Acute Assessment & Plan: Etiology Co2 retension due to non compliance with CPAP in NH Less likely infectious as CT chest -ve, Procalcitonin low. Patient is currently on 2 L oxygen keep sats more than 90% Tested - Covid/Influenza/ RSV Trop negative BNP <20 Will keep admit on telemetry Continue breathing therapy every 4 hours as per need Will start BIPAP overnight Repeat ABG reviewed CM to arrange O2 set up for ECF Code(s): J96.01 - ACUTE RESPIRATORY FAILURE WITH HYPOXIA (2) Diabetes mellitus Current Visit: Yes Status: Chronic Assessment & Plan: Resumed home lantus C.w SSI Code(s): E11.9 - TYPE 2 DIABETES MELLITUS WITHOUT COMPLICATIONS (3) Elevated d-dimer Current Visit: Yes Status: Chronic Assessment & Plan: CT is not impressive for pulmonary embolism and main trunk but cannot be excluded and segmental branches Might need to get a repeat scan if clinical course remained high probability for PE Code(s): R79.89 - OTHER SPECIFIED ABNORMAL FINDINGS OF BLOOD CHEMISTRY (4) Hypertension Current Visit: Yes Status: Acute Assessment & Plan: Blood pressure stable Will resume home blood pressure meds Code(s): I10 - ESSENTIAL (PRIMARY) HYPERTENSION (5) Morbid obesity with BMI of 50.0-59.9, adult Current Visit: Yes Status: Chronic Assessment & Plan: - advised ADA diet and exercise control Code(s): E66.01 - MORBID (SEVERE) OBESITY DUE TO EXCESS CALORIES; Z68.43 - BODY MASS INDEX [BMI] 50.0-59.9, ADULT (6) Hyperlipidemia Current Visit: Yes Status: Chronic Assessment & Plan: Continue home statins Code(s): E78.5 - HYPERLIPIDEMIA, UNSPECIFIED (7) GERD (gastroesophageal reflux disease) Current Visit: Yes Status: Chronic Assessment & Plan: Continue pantoprazole Code(s): K21.9 - GASTRO-ESOPHAGEAL REFLUX DISEASE WITHOUT ESOPHAGITIS (8) SAL (obstructive sleep apnea) Current Visit: Yes Status: Acute Assessment & Plan: Non compliant with CPAP Code(s): G47.33 - OBSTRUCTIVE SLEEP APNEA (ADULT) (PEDIATRIC) (9) Restless leg syndrome Current Visit: Yes Status: Chronic Assessment & Plan: Continue home meds - Discharge Discharge Date: 05/08/24 ([facility]) Disposition: DC TO ANY "OTHER" SHELTER Condition: Stable Prescriptions: Continue Ropinirole HCl 0.25 mg PO DAILY Fenofibrate Nanocrystallized [Tricor] 48 mg PO DAILY Omeprazole 20 mg PO DAILY Insulin Aspart [NovoLOG Insulin] 35 unit SQ TIDAC Hydrocodone/Acetaminophen [Hydrocodone-Acetamin 5-325 mg] 1 tab PO Q6HPRN PRN MDD 4 PRN Reason: Pain Sitagliptin Phosphate 50 MG [Januvia 50 MG] 100 mg PO DAILY Gabapentin 600 mg PO DAILY Dapagliflozin Propanediol [Farxiga] 10 mg PO DAILY Dextromethorphan HBr 45 mg PO DAILY Carvedilol 12.5 mg [Coreg 12.5 mg] 12.5 mg PO BID Insulin Glargine,Hum.rec.anlog [Basaglar Kwikpen U-100] 60 unit SQ DAILY Aspirin EC 81 mg [Ecotrin 81 mg] 81 mg PO DAILY Cholecalciferol (Vitamin D3) [Vitamin D3] 25 mcg PO DAILY Additional Instructions: SHELTER ORDERS- BIPAP PER PRIOR HOME SETTINGS(20/06 - ADD 5L OXYGEN) Follow up with: FREDO ABEBE [ACTIVE STAFF] - 05/21/24 10:00 am (AT THE TH OFFICE (JENN[facility]ER APTS WERE UNAVAILABLE))
[2024-05-08 09:01] VITALS: BP 120/58; TEMP 96.4
== END 2024-05-08 10:04 ==
LOC: ED 21:04 → MED SURG 05-07 02:06
PROVIDERS: ADMIT Internal Medicine; ATTEND Internal Medicine
DX: J96.01 Acute respiratory failure with hypoxia (principal); E11.9 Type 2 diabetes mellitus without complications; R79.89 Other specified abnormal findings of blood chemistry; I10 Essential (primary) hypertension; E66.01 Morbid (severe) obesity due to excess calories; Z68.42 Body mass index [BMI] 45.0-49.9, adult; Z68.43 Body mass index [BMI] 50.0-59.9, adult; E78.5 Hyperlipidemia, unspecified; K21.9 Gastro-esophageal reflux disease without esophagitis; G47.33 Obstructive sleep apnea (adult) (pediatric); G25.81 Restless legs syndrome; J44.9 Chronic obstructive pulmonary disease, unspecified; Z79.899 Other long term (current) drug therapy
CPT/HCPCS: 0241U; 36415; 36600; 71260; 80048; 80053; 81001; 82375; 82803; 82947; 83605; 83880; 84134; 84145; 84484; 85025; 85027; 85379; 93005; 93268; 94002; 94003; 94640; 94660; 94760; 94762; 99283; J1650; Q3014; A9270-GY; G0378

== ENCOUNTER 2024-07-02 13:43 | Emergency (ER) | payer MEDICARE ==
--- NOTE | 2024-07-02 13:48 | ERPHSYRPT ---
- History of Present Illness Time Seen by Provider: 07/02/24 13:48 Source: patient, EMS Exam Limitations: no limitations Physician History: This is a 49-year-old morbidly obese white male patient brought to the emergency department by the supervisor telephone clerks service from [facility] where he is undergoing rehab. Patient states he is in rehab because he let himself go over the last year after his had . Patient was transferring from wheelchair to bed when he felt a pop in his back on 2023. Patient did not suffer any acute fall or trauma. Patient has a history of chronic low back pain and is on [place] daily. His last dose of [place] pain medicine was at approximately 830 this morning. Patient states that the [place] is "not touching the pain" Timing/Duration: day(s) (5) Method of Injury: twisted Quality: aching Back Pain Location: paraspinous muscles Severity of Pain-Max: moderate Severity of Pain-Current: moderate Modifying Factors: Improves With: movement Associated Symptoms: lower back pain, muscle spasms, No loss of bowel control, No problems urinating, No numbness in legs/feet Previous symptoms: same symptoms as today, no recent treatment Allergies/Adverse Reactions: No Known Drug Allergies Allergy (Unverified 07/02/24 13:47) Travel Risk - International Travel Have you traveled outside of the country in past 3 weeks: No - Emerging Infectious Disease Are you exhibiting symptoms associated with any current EIDs: No - Review of Systems Constitutional: No Symptoms Eyes: No Symptoms Ears, Nose, & Throat: No Symptoms Respiratory: No Symptoms Cardiac: No Symptoms Abdominal/Gastrointestinal: No Symptoms Genitourinary Symptoms: No Symptoms Musculoskeletal: Back Pain, No Injury Skin: No Symptoms Neurological: No Symptoms Psychological: No Symptoms Endocrine: No Symptoms Hematologic/Lymphatic: No Symptoms Immunological/Allergic: No Symptoms All Other Systems: Reviewed and Negative - Past Medical History Pertinent Past Medical History: Yes - Nursing Vital Signs Nursing Vital Signs: Initial Vital Signs Temperature 97.9 F 07/02/24 13:48 Pulse Rate 98 H 07/02/24 13:48 Respiratory Rate 24 07/02/24 13:48 Blood Pressure 130/79 07/02/24 13:48 O2 Sat by Pulse Oximetry 96 07/02/24 13:48 Pain Scale Pain Intensity [Lower Back] 10 Pain Intensity 10 - Physical Exam General Appearance: no apparent distress, alert, anxiety, obese Eye Exam: PERRL/EOMI, eyes nml inspection Ears, Nose, Throat Exam: normal ENT inspection, moist mucous membranes Neck Exam: normal inspection, non-tender, supple, full range of motion Respiratory Exam: normal breath sounds, lungs clear, airway intact, No chest tenderness, No respiratory distress Cardiovascular Exam: regular rate/rhythm, normal heart sounds, normal peripheral pulses Gastrointestinal Exam: soft, normal bowel sounds, No tenderness Rectal Exam: not done Back Exam: normal inspection, normal range of motion, muscle spasm, No CVA tenderness, No vertebral tenderness Extremity Exam: normal inspection, normal range of motion, pelvis stable Neurologic Exam: alert, oriented x 3, cooperative, elevator erector II-XII nml as tested, sensation nml Skin Exam: normal color, warm, dry Lymphatic Exam: No adenopathy SpO2 Interpretation: normal O2 Delivery: Room Air - Course Nursing assessment & vital signs reviewed: Yes Ordered Tests: Active Orders 24 hr Category Date Time Status LUMBAR LIMITED (2 OR 3 VIEWS) Stat Exams 07/02/24 14:24 Completed Medication Summary Discontinued Medications Generic Name Dose Route Start Last Admin Trade Name Freq PRN Reason Stop Dose Admin Methylprednisolone Sodium 0 mg 07/02/24 15:15 Succinate 125 mg/ Sterile IM 07/02/24 15:16 Water 2 ml STAT ONE Hydromorphone HCl 0.5 mg 07/02/24 15:15 Hydromorphone 1 Mg/1ml Inj IM 07/02/24 15:16 STAT ONE Ondansetron HCl 4 mg 07/02/24 15:14 Zofran 4 Mg/Udtablet Orally Disintegrating PO 07/02/24 15:15 STAT ONE Orphenadrine Citrate 60 mg 07/02/24 15:15 Orphenadrine Citrate 60 Mg/2 Ml Vial IM 07/02/24 15:16 STAT ONE - Progress Progress: improved, pain not gone completely Progress Note: 07/02/24 14:39 My medical decision making and the assignment of low complexity to this patient's medical issue today is based on review of the patient's past medical history, review the patient's medication list, reviewed patient drug allergy list, history present illness and physical findings on examination. The workup in this patient includes x-ray of the lumbar spine. Differential diagnosis includes but is not limited to muscle skeletal pain, muscle spasms, fracture/subluxation of spine 07/02/24 15:16 I interpreted the preliminary report of the lumbar spine x-rays. There are chronic changes noted. No evidence of any acute fracture or subluxation. 07/02/24 15:46 The final report of the spinal x-rays were interpreted by the radiologist. There are no acute fractures or subluxation. There are chronic changes present. Counseled pt/family regarding: diagnosis, need for follow-up, rad results Medical Desision Making - Diagnostic Testing Diagnostic test were ordered, analyzed, and reviewed by me: Yes Radiological Interpretation: Interpreted by me, Teleradiologist Report - Risk of complications The pt has a mod risk of morbidity or mortality based on: Need for prescription drug management - Departure Departure Disposition: Home Clinical Impression: Acute exacerbation of chronic low back pain Condition: Stable Critical Care Time: No Referrals: ENVIVE,ENVIVE [Primary Care Provider] - Follow up/PCP as directed Additional Instructions: Continue the [place] pain medicine as prescribed. Take your new medication as prescribed. Call the prescribing provider today, 07/02/2024, to make arrangements for follow-up appointment for further evaluation and management.
[2024-07-02 14:04] VITALS: RESP 24; TEMP 97.9
--- NOTE | 2024-07-02 15:24 | XRAY ---
Indication: Lumbar pain. Comparison: None 3 view lumbar spine demonstrates 4 lumbar segments with partial sacralized L5. Patient slightly rotated to right with osteopenia and mild/moderate multilevel thoracolumbar degenerative spondylosis greatest at L2-L3. No acute bony, articular, or soft tissue abnormalities.
[2024-07-02] MEDS ORDERED: Sterile H2O 10 ml IJ ONE (15:46)
[2024-07-02] MEDS ORDERED: Zofran 4 MG/2 ML VIAL ONE (15:47)
[2024-07-02] MEDS ORDERED: Norflex 60 MG/2 ML ONE (15:47)
[2024-07-02] MEDS ORDERED: solu-MEDROL ONE (15:48)
[2024-07-02] MEDS ORDERED: Hydromorphone 1 mg/ml Injection ONE (15:48)
[2024-07-02] MEDS: solu-MEDROL 125 MG, Sterile H2O 10 ml 2 ML IM ONE (15:55)
[2024-07-02] MEDS: Norflex 60 MG/2 ML IM ONE (15:56)
[2024-07-02] MEDS: Hydromorphone 1 mg/ml Injection IM ONE (15:56)
[2024-07-02] MEDS ORDERED: ZOFRAN ODT 4 MG ONE (16:02)
[2024-07-02] MEDS: ZOFRAN ODT 4 MG PO ONE (16:03)
[2024-07-02 16:48] VITALS: BP 108/62; PULSE 88; O2SAT 96
== END 2024-07-02 16:41 | disposition home or self-care (01) ==
LOC: MERGE 13:43 → ED 13:43
DX: G89.29 Other chronic pain (principal); M54.50 Low back pain, unspecified; Z79.891 Long term (current) use of opiate analgesic
CPT/HCPCS: 72100; 96372; 99283; 99284; J1171; J2360; J2405; J2919; Q0162